=== PATIENT | female | born 1965 | race Caucasian/White ===

== ENCOUNTER 2020-06-26 07:13 | Day surgery (SDC) | payer OTHER, SELFPAY ==
[~2020-06-26] VITALS: Ht 162.6 cm; Wt 54.4 kg
[2020-06-26] MEDS ORDERED: fentaNYL citrate 0.05 MG/ML VIAL ONE (09:16)
[2020-06-26] MEDS ORDERED: LIDOCAINE 2% 100 MG/5 ML UJET TP ONE (09:17)
[2020-06-26] MEDS ORDERED: LIDOCAINE JELLY 2% 30 ML TUBE TP ONE (12:45)
[2020-06-26] MEDS ORDERED: fentaNYL citrate 0.05 MG/ML VIAL IVP ONE (12:45)
== END 2020-06-26 11:10 | disposition home or self-care (01) ==
LOC: MMU 07:13 → MDS 07:13
PROVIDERS: ATTEND Internal Medicine Gastroenterology
DX: Z12.11 Encounter for screening for malignant neoplasm of colon (principal); K64.8 Other hemorrhoids; I10 Essential (primary) hypertension; E78.5 Hyperlipidemia, unspecified; E11.9 Type 2 diabetes mellitus without complications; F32.9 Major depressive disorder, single episode, unspecified; Z90.711 Acquired absence of uterus with remaining cervical stump; Z79.84 Long term (current) use of oral hypoglycemic drugs; Z20.828 Contact with and (suspected) exposure to other viral communicable diseases; Z79.899 Other long term (current) drug therapy
CPT/HCPCS: 45378; J3010; U0003